=== PATIENT | male | born 1955 | race Caucasian/White ===

== ENCOUNTER 2023-01-16 09:25 | Day surgery (SDC) | payer BC, MEDICARE ==
[~2023-01-16 09:25] MED LIST: Midazolam 1 MG/ML 2 ML SDV ONE; Propofol 200 MG/20 ML SDV ONE
[2023-01-16] MEDS ORDERED: Sodium Chloride 0.9% 10 ML Syringe FLUSH PRN (09:30)
[2023-01-16] MEDS ORDERED: Lactated Ringers 1,000 ML IV SCH (09:30)
== END 2023-01-16 12:11 | disposition home or self-care (01) ==
LOC: LL.SDS 09:25
PROVIDERS: ATTEND Surgery
DX: Z12.11 Encounter for screening for malignant neoplasm of colon (principal); K57.30 Diverticulosis of large intestine without perforation or abscess without bleeding
CPT/HCPCS: 00812; J2250; J2704; J7120